=== PATIENT | female | born 1990 | race Caucasian/White ===

== ENCOUNTER 2021-03-21 08:21 | Inpatient (IN) | payer MEDICAID ==
[~2021-03-21] VITALS: Ht 165.1 cm; Wt 94.8 kg
[2021-03-21 10:04] LABS: BASOPHILS % 0.2 % (0.0-2.0); EOSINOPHILS % 0.2 % (0.0-5.0); HEMATOCRIT. 41.1 % (36.0-48.0); HEMOGLOBIN. 13.9 g/dL (12.0-16.0); LYMPHOCYTES % 9.8 % (20.0-50.0); MEAN CORPUSCULAR HEMOGLOBIN 29.1 pg (28.0-32.0); MEAN PLATELET VOLUME 7.3 fl (7.4-10.4); MONOCYTES % 5.6 % (2.0-8.0); NEUTROPHILS % 84.2 % (40.0-76.0); PLATELET 377 x1000/uL (130-400); RED BLOOD CELL COUNT 4.78 mill/uL (4.2-5.4); RED CELL DISTRIBUTION WIDTH 13.1 % (11.6-14.6)
[2021-03-21 10:09] LABS: CHLORIDE 105 mEq/L (98-107)
[2021-03-21 10:41] LABS: HCG SCREEN NEGATIVE
[2021-03-21 11:48] LABS: CLARITY URINE CLOUDY (CLEAR); COLOR URINE DARK YELLOW (YELLOW); KETONES URINE NEGATIVE (NEGATIVE); LEUKOCYTE ESTERASE URINE 1+ (NEGATIVE); NITRITE URINE NEGATIVE (NEGATIVE); OCCULT BLOOD URINE NEGATIVE (NEGATIVE); PH URINE 8.5 (4.5-8.0); PROTEIN URINE NEGATIVE (NEGATIVE); SPECIFIC GRAVITY URINE 1.015 (1.005-1.030)
[2021-03-21] MEDS: PANTOPRAZOLE SODIUM 40 MG/VIAL IV SCH (16:00)
[2021-03-21] MEDS ORDERED: HYDROMORPHONE HCL/PF 2MG/ML CPJ IV PRN (16:45)
[2021-03-21] MEDS ORDERED: DEXT 5%/0.45% NACL 1000ML 1,000 ML IV SCH (16:45)
[2021-03-21] MEDS ORDERED: ONDANSETRON HCL 4MG/2ML INJ IV PRN (16:45)
[2021-03-21] MEDS ORDERED: ACETAMINOPHEN 650MG SUPP PR PRN (16:45)
[2021-03-21 18:24] VITALS: BP 105/58
[2021-03-21 20:00] VITALS: BP 105/51
[2021-03-22] VITALS: BP 104/66
[2021-03-22 08:00] VITALS: BP 102/59
[2021-03-22] MEDS: PANTOPRAZOLE SODIUM 40 MG/VIAL IV SCH (08:54)
[2021-03-22 09:12] LABS: BASOPHILS % 0.9 % (0.0-2.0); EOSINOPHILS % 1.7 % (0.0-5.0); HEMATOCRIT. 38.2 % (36.0-48.0); HEMOGLOBIN. 12.8 g/dL (12.0-16.0); LYMPHOCYTES % 26.9 % (20.0-50.0); MEAN CORPUSCULAR HEMOGLOBIN 28.7 pg (28.0-32.0); MEAN CORPUSCULAR VOLUME 85.9 fL (81.0-99.0); MEAN PLATELET VOLUME 7.1 fl (7.4-10.4); MONOCYTES % 8.8 % (2.0-8.0); NEUTROPHILS % 61.7 % (40.0-76.0); PLATELET 334 x1000/uL (130-400); RED BLOOD CELL COUNT 4.45 mill/uL (4.2-5.4); RED CELL DISTRIBUTION WIDTH 12.9 % (11.6-14.6)
[2021-03-22 09:31] LABS: CHLORIDE 108 mEq/L (98-107)
[2021-03-22 09:36] LABS: AMYLASE 43 IU/L (25-115)
[2021-03-22 12:00] VITALS: BP 113/68
[2021-03-22 16:00] VITALS: BP 114/62
[2021-03-22 20:00] VITALS: BP 119/68
[2021-03-22] MEDS ORDERED: NALOXONE HCL 0.4MG/ML VIAL IV PRN (22:15)
[2021-03-23] VITALS: BP 102/62
[2021-03-23 04:00] VITALS: BP 107/65
[2021-03-23 08:00] VITALS: BP 110/68
[2021-03-23] MEDS: PANTOPRAZOLE SODIUM 40 MG/VIAL IV SCH (08:27)
[2021-03-23 08:57] LABS: BASOPHILS % 0.6 % (0.0-2.0); EOSINOPHILS % 1.6 % (0.0-5.0); HEMATOCRIT. 39.7 % (36.0-48.0); HEMOGLOBIN. 13.4 g/dL (12.0-16.0); MEAN CORPUSCULAR HEMOGLOBIN 29.2 pg (28.0-32.0); MEAN CORPUSCULAR VOLUME 86.5 fL (81.0-99.0); MEAN PLATELET VOLUME 7.3 fl (7.4-10.4); MONOCYTES % 7.2 % (2.0-8.0); NEUTROPHILS % 58.6 % (40.0-76.0); PLATELET 349 x1000/uL (130-400); RED BLOOD CELL COUNT 4.59 mill/uL (4.2-5.4); RED CELL DISTRIBUTION WIDTH 13.1 % (11.6-14.6)
[2021-03-23 09:08] LABS: CHLORIDE 107 mEq/L (98-107)
[2021-03-23 11:48] VITALS: BP 145/81
[2021-03-23 12:00] VITALS: BP 112/62
== END 2021-03-23 14:05 | disposition home or self-care (01) ==
LOC: ER 08:21 → 6EST 14:41 → EDBEDREQTM 15:04 → EDBEDREQ 15:04 → EDBEDREQSVC 15:06 → ENRESERV 15:13
PROVIDERS: ADMIT Hospitalist; ATTEND Hospitalist
DX: K80.20 Calculus of gallbladder without cholecystitis without obstruction (principal); E80.6 Other disorders of bilirubin metabolism; R74.01 Elevation of levels of liver transaminase levels; R74.8 Abnormal levels of other serum enzymes
CPT/HCPCS: 36415; 74181; 76700; 80048; 80053; 80076; 81003; 82150; 84703; 85025; 99285; C9113

== ENCOUNTER 2021-05-22 21:31 | Emergency (ER) | payer SELFPAY ==
[~2021-05-22] VITALS: Ht 165.1 cm; Wt 95.0 kg
[2021-05-22] MEDS ORDERED: KETOROLAC 30MG/ML VIAL IV STA (21:56)
[2021-05-22] MEDS ORDERED: ONDANSETRON HCL 4MG/2ML INJ IV STA (21:56)
[2021-05-22] MEDS ORDERED: SODIUM CHLORIDE 0.9% 1,000 ML IV ONE (22:00)
[2021-05-22 22:02] LABS: CLARITY URINE TURBID (CLEAR); COLOR URINE YELLOW (YELLOW); KETONES URINE TRACE (NEGATIVE); LEUKOCYTE ESTERASE URINE 1+ (NEGATIVE); NITRITE URINE NEGATIVE (NEGATIVE); OCCULT BLOOD URINE 3+ (NEGATIVE); PROTEIN URINE NEGATIVE (NEGATIVE); SPECIFIC GRAVITY URINE 1.022 (1.005-1.030)
[2021-05-22 22:17] LABS: BASOPHILS % 0.2 % (0.0-2.0); EOSINOPHILS % 0.4 % (0.0-5.0); HEMATOCRIT. 39.8 % (36.0-48.0); LYMPHOCYTES % 12.5 % (20.0-50.0); MEAN CORPUSCULAR HEMOGLOBIN 27.8 pg (28.0-32.0); MEAN CORPUSCULAR VOLUME 84.7 fL (81.0-99.0); MEAN PLATELET VOLUME 7.2 fl (7.4-10.4); NEUTROPHILS % 81.9 % (40.0-76.0); PLATELET 371 x1000/uL (130-400); RED BLOOD CELL COUNT 4.69 mill/uL (4.2-5.4); RED CELL DISTRIBUTION WIDTH 12.9 % (11.6-14.6)
[2021-05-22 22:23] LABS: CHLORIDE 107 mEq/L (98-107)
[2021-05-22] MEDS ORDERED: CEFTRIAXONE 1 G PREMIX 50 ML IV ONE (23:00)
[2021-05-23] MEDS ORDERED: CEPH500T MT (00:27)
[2021-05-23] MEDS ORDERED: IBUP-2029 MT (00:27)
[2021-05-23 01:00] VITALS: BP 126/74
== END 2021-05-23 01:20 | disposition home or self-care (01) ==
LOC: ER 21:31
DX: K80.50 Calculus of bile duct without cholangitis or cholecystitis without obstruction (principal); N30.90 Cystitis, unspecified without hematuria; Z98.890 Other specified postprocedural states
CPT/HCPCS: 36415; 76705; 80053; 81003; 81025; 83690; 85025; 96365; 96375; 99284; J0696; J1885; J2405; J7030

== ENCOUNTER 2024-12-19 11:17 | Emergency (ER) | payer MEDICAID ==
[~2024-12-19] VITALS: Ht 165.1 cm; Wt 72.0 kg
[~2024-12-19 11:17] MED LIST: CEPH500T MT; IBUP-2029 MT
[2024-12-19 11:28] VITALS: O2SAT 100
[2024-12-19 11:56] LABS: HEMATOCRIT. 33.0 % (36.0-48.0); HEMOGLOBIN. 11.4 g/dL (12.0-16.0); MEAN PLATELET VOLUME 7.1 fl (7.4-10.4); PLATELET 271 x1000/uL (130-400); RED BLOOD CELL COUNT 3.98 mill/uL (4.2-5.4); RED CELL DISTRIBUTION WIDTH 14.4 % (11.6-14.6)
[2024-12-19 12:09] LABS: INR 1.0
[2024-12-19 12:12] LABS: CREATININE 0.6 mg/dL (0.6-1.0); UREA NITROGEN BLOOD < 5 mg/dL (9-23)
[2024-12-19] MEDS: SODIUM CHLORIDE 0.9% (SEPSIS BOLUS) IV ONE (12:12)
[2024-12-19 12:14] LABS: ASPARTATE AMINOTRANSFERASE 12 IU/L (<34); BILIRUBIN DIRECT 0.2 mg/dL (<=3.0)
[2024-12-19 12:15] LABS: BILIRUBIN TOTAL 0.8 mg/dL (0.1-1.0); PROTEIN TOTAL 6.9 g/dL (6.0-8.3)
[2024-12-19] MEDS: CEFTRIAXONE 1GM/50ML 50 ML IV ONE (12:21)
[2024-12-19] MEDS ORDERED: IPRATROPIUM BROMIDE (0.02%) 0.5MG/2.5ML NEB HHN ONE (12:30)
[2024-12-19] MEDS ORDERED: ALBUTEROL (0.083%) 2.5MG/3ML NEB HHN ONE (12:30)
[2024-12-19 12:42] LABS: BAND% 1.0 % (1.0-6.0); LYMPHOCYTES % MANUAL 3.0 % (20.0-60.0); MONOCYTES % MANUAL 2.0 % (2.0-8.0); NEUTROPHILS % MANUAL 94.0 % (45.0-75.0); PLATELET ESTIMATE NORMAL
[2024-12-19] MEDS: ACETAMINOPHEN 325MG TABLET PO ONE (13:18)
[2024-12-19 14:28] LABS: CLARITY URINE CLEAR (CLEAR); COLOR URINE YELLOW (YELLOW); GLUCOSE URINE NEGATIVE (NEGATIVE); KETONES URINE NEGATIVE (NEGATIVE); LEUKOCYTE ESTERASE URINE 3+ (NEGATIVE); NITRITE URINE NEGATIVE (NEGATIVE); OCCULT BLOOD URINE TRACE (NEGATIVE); PH URINE 7.5 (4.5-8.0); PROTEIN URINE NEGATIVE (NEGATIVE); SPECIFIC GRAVITY URINE 1.002 (1.005-1.030); UROBILINOGEN URINE 0.2 E.U./dL (0.2-1.0)
[2024-12-19 14:46] LABS: BACTERIA URINE 1+; RBC URINE 0-2 /hpf (0-2); SQUAMOUS EPITHELIAL CELL URINE 1+ /lpf (RARE/1+); WBC URINE 15-25 /hpf (0-2); YEAST URINE NONE SEEN
[2024-12-19 15:56] LABS: INFLUENZA TYPE A Presumptive Negative (Pres. Neg.)
[2024-12-19 15:57] LABS: INFLUENZA TYPE B Presumptive Negative (Pres. Neg.); RESPIRATORY SYNCYTIAL VIRUS Not Detected (Not Detectd)
[2024-12-19] MEDS: ONDANSETRON HCL 4MG/2ML INJ IV ONE (17:01)
[2024-12-19 17:19] VITALS: BP 145/92; PULSE 94; RESP 21; TEMP 37.2; O2SAT 100
== END 2024-12-19 17:45 | disposition short-term general hospital (02) ==
LOC: ER 11:17 → CMPBEDREQ 19:22
DX: O26.892 Other specified pregnancy related conditions, second trimester (principal); R50.9 Fever, unspecified; R05.9 Cough, unspecified; R06.02 Shortness of breath; Z36.89 Encounter for other specified antenatal screening; Z79.899 Other long term (current) drug therapy; Z55.6 Problems related to health literacy; Z75.3 Unavailability and inaccessibility of health-care facilities; Z3A.19 19 weeks gestation of pregnancy; Z20.822 Contact with and (suspected) exposure to COVID-19
CPT/HCPCS: 99291; 96365; 76805; 71045; 96375; 87426; 80076; 80048; 81003; 83605; 83690; 85025; 85610; 85730; 87420; 87040; 87086; 87804 ×2; 36415; 84145; 76817; 93005; J0696; J2405; J7030